=== PATIENT | female | born 1970 | race Caucasian/White ===

== ENCOUNTER → 2018-09-14 11:24 | Outpatient (CLI) | payer BC, SELFPAY ==
[2018-09-14 12:48] LABS: Free T4, Direct Thyroxine 0.71 ng/dL (0.78-2.19)
[2018-09-14 13:02] LABS: Thyroid Stimulating Hormone 6.46 uIU/mL (0.47-4.68)
== END ==
PROVIDERS: PCP Physician Assistant; Visit Provider Physician Assistant
DX: Z13.29 Encounter for screening for other suspected endocrine disorder (principal); R53.83 Other fatigue
CPT/HCPCS: 36415; 84439; 84443

== ENCOUNTER → 2018-10-13 13:02 | Outpatient (CLI) | payer BC, SELFPAY ==
[2018-10-13 15:22] LABS: Free T3, Triiodothyronine Free 3.11 pg/mL (2.77-5.27); Free T4, Direct Thyroxine 0.65 ng/dL (0.78-2.19)
[2018-10-13 15:36] LABS: Thyroid Stimulating Hormone 5.49 uIU/mL (0.47-4.68)
== END ==
PROVIDERS: PCP Physician Assistant; Visit Provider Physician Assistant
DX: R94.6 Abnormal results of thyroid function studies (principal)
CPT/HCPCS: 36415; 84439; 84443; 84481

== ENCOUNTER → 2018-12-14 10:25 | Outpatient (CLI) | payer BC, SELFPAY ==
[2018-12-14 12:10] LABS: Thyroid Stimulating Hormone 4.61 uIU/mL (0.47-4.68)
== END ==
PROVIDERS: PCP Physician Assistant; Visit Provider Physician Assistant
DX: E03.9 Hypothyroidism, unspecified (principal)
CPT/HCPCS: 36415; 84443

== ENCOUNTER → 2019-06-22 19:00 | Outpatient (ROUT) | payer BC, SELFPAY ==
[2019-06-22 19:58] LABS: TSH w/ Reflex to FT4 2.81 uIU/mL (0.47-4.68)
[2019-06-22 20:03] LABS: Hepatitis B Surface Antigen NEGATIVE s/c (NEGATIVE)
[2019-06-22 20:18] LABS: HIV 1 & 2 Ab/Ag 4th Gen Combo NEGATIVE (NEGATIVE); Hep C Virus Ab w/Reflex Quant NEGATIVE s/c (NEGATIVE)
[2019-06-25 15:58] LABS: Hepatitis A Antibody IgM Nonreactive (Nonreactive); Hepatitis B Core Antibody Nonreactive (Nonreactive)
[2019-06-25 17:14] LABS: Hepatitis A Antibody Total Reactive (Nonreactive)
[2019-06-30 14:10] LABS: Hepatitis B Surf Ab Qualitativ Borderline (Nonreactive)
== END ==
PROVIDERS: PCP Physician Assistant; Visit Provider Physician Assistant
DX: Z11.59 Encounter for screening for other viral diseases (principal); Z11.4 Encounter for screening for human immunodeficiency virus [HIV]; Z20.2 Contact with and (suspected) exposure to infections with a predominantly sexual mode of transmission; Z91.89 Other specified personal risk factors, not elsewhere classified; E03.9 Hypothyroidism, unspecified
CPT/HCPCS: 84443; 86704; 86706; 86708; 86709; 86803; 87340; 87389

== ENCOUNTER → 2019-09-12 10:08 | Outpatient (CLI) | payer BC, SELFPAY ==
--- NOTE | 2019-09-12 | DI.RAD.S_ITS ---
PROCEDURE: XR HIP W PEL IF DONE LT 2V INDICATIONS: PAIN IN LT HIP TECHNIQUE: 2 views of the hip were acquired. COMPARISON: None. FINDINGS: Bones: No fractures or dislocations. No suspicious bony lesions. The visualized pelvic ring appears intact. Soft tissues: No suspicious soft tissue calcifications or masses. IMPRESSION: Normal for age, source of current left hip pain symptoms is not seen. Dictated by: Andrews Cabral M.D. on 09/12/2019 at 12:49 Approved by: Andrews Cabral M.D. on 09/12/2019 at 12:49
== END ==
PROVIDERS: PCP Physician Assistant; Visit Provider Physician Assistant
DX: M25.552 Pain in left hip (principal)
CPT/HCPCS: 73502

== ENCOUNTER → 2019-09-14 09:44 | Outpatient (CLI) | payer BC, SELFPAY ==
--- NOTE | 2019-09-14 | DI.MRI.S_ITS ---
PROCEDURE: MR HIP LT WO CON INDICATIONS: Pain in left hip TECHNIQUE: Noncontrast coronal T1 spin echo and STIR through the bony pelvis. Coronal and axial T2 fast spin echo with fat saturation, sagittal T1 spin echo, and oblique axial T2 fast spin echo with fat saturation through the hip. COMPARISON: None. FINDINGS: Image quality: Excellent. Bones and joints: No fracture identified. Sacroiliac joints are unremarkable in signal intensity. There is lower lumbar spondylosis and facet arthropathy. No pathologic hip joint effusion. No evidence of osteonecrosis. Tendons and ligaments: The gluteus medius and minimus tendons appear markedly thickened with T2 hyperintense appearance in keeping with severe tendinopathy. Similar appearance to the right hip adductor insertion to a lesser extent on large field of view pulse sequences Proximal iliotibial band intact. Iliopsoas tendon intact. Origin of the hamstring tendon intact. The straight and reflected heads of the rectus femoris muscle origin appear intact Ligamentum teres appears intact where visualized. Labrum: Labrum appears intact in the absence of intra-articular contrast. The alpha angle of the femur is within normal limits at less than 55 degrees. Soft tissues: There is cystic, T2 hyperintense appearance present within the adductor muscle compartment, presumably intramuscular ganglion cyst although cystic nature could be confirmed with IV contrast enhanced examination (and exclude statistically much less likely myxoid lesion) Quadratus femoris muscle normal. Proximal sciatic neurovascular bundle appears normal adjacent to the hamstring tendons. No free pelvic fluid. Bladder normal. Genitourinary structures and bowel loops appear normal where visualized. IMPRESSION: Severe left hip adductor insertional tendinopathy and partial rupture. Similar appearance to the right hip adductor muscle insertion however to a lesser extent T2 hyperintense cystic lesion involving the left adductor musculature, probably intramuscular ganglion cyst although please see comment above. Left hamstring origin tendinopathy, technically age-indeterminate. Dictated by: Gregg Lozada M.D. on 09/14/2019 at 17:19 Approved by: Gregg Lozada M.D. on 09/14/2019 at 17:48
== END ==
PROVIDERS: PCP Physician Assistant; Visit Provider Physician Assistant
DX: M25.552 Pain in left hip (principal); S73.192A Other sprain of left hip, initial encounter; M47.816 Spondylosis without myelopathy or radiculopathy, lumbar region; S73.191A Other sprain of right hip, initial encounter
CPT/HCPCS: 73721

== ENCOUNTER → 2021-06-26 10:48 | Outpatient (CLI) | payer BC, SELFPAY ==
--- NOTE | 2021-06-26 10:51 | DI.RAD.S_ITS ---
PROCEDURE: XR HIP W PEL IF DONE JOSUE MIN 4V INDICATIONS: Bilateral hip pain TECHNIQUE: AP pelvis with lateral view(s) of both hip(s). COMPARISON: [facility], CR, XR LUMBAR SPINE MIN 4V, 06/26/2021, 10:47. [facility], RG, MRI HIP UNILATERAL WO CONTRAST, 05/15/2020, 12:20. [facility], MR, MR HIP LT WO CON, 09/14/2019, 10:15. [facility], CR, XR HIP W PEL IF DONE LT 2V, 09/12/2019, 10:30. FINDINGS: Bones: No fractures or dislocations. Pelvic ring appears intact. No suspicious bony lesions. Diastasis pubis can be seen. There is [id number] superior joint space narrowing seen of both hips, with associated remodeling changes with subchondral sclerosis and osteophyte formation. Soft tissues: The visualized bowel gas pattern is normal. No suspicious soft tissue calcifications. IMPRESSION: [id number] degenerative change can be seen involving both hips. Diastasis pubis noted. Dictated by: Tomy Dorado M.D. on 06/26/2021 at 10:38 Approved by: Tomy Dorado M.D. on 06/26/2021 at 10:41
--- NOTE | 2021-06-26 10:51 | DI.RAD.S_ITS ---
PROCEDURE: XR LUMBAR SPINE MIN 4V INDICATIONS: BACK PAIN TECHNIQUE: Four views of the lumbar spine are obtained. COMPARISON: None. FINDINGS: Bones: 5 nonrib-bearing vertebrae are present. There is normal bony alignment. No vertebral body compression fractures. No suspicious bony lesions. Mild multilevel disc space narrowing and endplate osteophyte formation. Facet hypertrophy throughout the mid and lower lumbar spine. Soft tissues: Overlying bowel gas pattern is normal. No suspicious soft tissue calcifications. IMPRESSION: Multilevel degenerative disc and facet disease. No acute fracture. No osseous lesion. If symptoms and/or clinical suspicion for pathology persist, further assessment with repeat, or advanced imaging (e.g., CT, MRI, or bone scan) may be helpful for further assessment. Dictated by: Lizbet Fitch M.D. on 06/26/2021 at 15:03 Approved by: Lizbet Fitch M.D. on 06/26/2021 at 15:04
== END ==
PROVIDERS: PCP Nurse Practitioner; Referring Provider Physical Medicine & Rehabilitation; Visit Provider Physical Medicine & Rehabilitation
DX: M54.9 Dorsalgia, unspecified (principal); M16.9 Osteoarthritis of hip, unspecified; M25.551 Pain in right hip; M25.552 Pain in left hip
CPT/HCPCS: 72110; 73522

== ENCOUNTER 2021-08-27 08:48 | Outpatient (CLI) | payer BC, OTHER, MEDICAID, SELFPAY ==
[2021-08-27] VITALS (10 sets, daily range): BP systolic 109–132; BP diastolic 55–86; PULSE 66–82; RESP 12–20; TEMP 36.4; O2SAT 95–100
--- NOTE | 2021-08-27 08:50 | DI.RAD.S_ITS ---
PROCEDURE: PAIN SI JOINT INJECTION JOSUE COMPARISON: [facility], CR, XR HIP W PEL IF DONE JOSUE 3TO4V, 06/26/2021, 10:47. [facility], CR, XR LUMBAR SPINE MIN 4V, 06/26/2021, 10:47. INDICATIONS: SACROILIAC DISORDER FINDINGS: 6 intraoperative fluoroscopy images demonstrate injection of SI joints bilaterally. IMPRESSION: Fluoroscopy for pain management. Dictated by: Sana Bedolla M.D. on 08/27/2021 at 10:28 Approved by: Sana Bedolla M.D. on 08/27/2021 at 10:29
[2021-08-27] MEDS: fentaNYL 100 MCG/2 ML INJ 50 MCG IV (09:12)
[2021-08-27] MEDS: LIDOCAINE 1% 20 ML (09:18)
[2021-08-27] MEDS: BUPIVACAINE 0.5% (PF) VIAL 2 ML INJ (09:18)
[2021-08-27] MEDS: IOPAMIDOL 15 ML VIAL 3 ML INJ (09:18)
[2021-08-27] MEDS: BETAMETHASONE 30 MG/5 ML MDV 12 MG INJ (09:19)
[2021-08-27] MEDS: MIDAZOLAM 5 MG/5 ML VIAL IV (09:22)
--- NOTE | 2021-08-27 09:31 | PM.PROC.IR.1 ---
Date/Time/Diagnoses Date of procedure: 08/27/21 Time of procedure: 09:31 Pre-procedure diagnosis: Sacroiliac joint pain/DJD Post-procedure diagnosis: same Procedure Notes Procedure: Fluoroscopic guided contrast controlled bilateral sacroiliac joint injection Indications: Rach is referred by ALDO Friedman for treatment of bilateral sacroiliac joint DJD Physician: Marcus Rosa Total Fluoroscopy time (seconds): 14 Total sedation minutes: 16 Complications: none Procedure in detail & Post-procedure care: Description of procedure Fluoroscopic guided, contrast controlled bilateral sacroiliac joint injection Following review of allergies and review of potential side effects and complications, including, but not necessarily limited to, infection, allergic reaction, local tissue breakdown, temporary as well as permanent nerve injury, paralysis, stroke and possible , the patient indicated that they understood and agreed to proceed. An informed consent was signed by the patient, witnessed by a nurse, and placed in the patient's chart. Additionally, other treatment options including modalities, medications, and physical therapy were reviewed with the patient. After review of previous anaesthesic history and IV conscious sedation the patient was deemed safe to proceed with today?s procedure with IV conscious sedation as ASA class II designation. Safety time-out was performed to confirm patient ID, procedure to be performed and site of procedure. IV sedation was accomplished with a combination of 5mg Versed and 50mcg of Fentanyl were administered by the RN after DO order, titrated to patient comfort during the course of the procedure while the patient remained responsive to all verbal commands In the prone position following sterile prep and drape of the pelvic region, the hyper lucency on in the inferior aspect of the right sacroiliac joint was identified fluoroscopically the skin was anesthetized be a 25 gauge 1.5 inch needle with approximately 2cc of 1% lidocaine solution. At this point, a 22 gauge 3 in spinal needle was atraumatically introduced and advanced under fluoroscopic guidance into the inferior aspect of the right sacroiliac joint. Following negative aspiration, approximately 0.3cc of [id number]-300 was injected confirming intra-articular placement without vascular uptake. Radiographic data, including multiple fluoroscopic views of the pelvis, reveals a spinal needle in the sacroiliac joint hyper lucent zone. Subsequent view show flow contrast tear superiorly and inferiorly within the joint capsule without vascular intrathecal uptake. At this point a total of 1cc of 0.5% Marcaine was combined with 1cc of 6mg of betamethasone was injected without incident. Attention was then refocused the left sacroiliac joint where the procedure was replicated. The procedure tolerated the procedure well without signs or symptoms of complications prior to transfer to the recovery area continued monitoring without incident. The patient was then transferred to the recovery area with a bur observed for an appropriate time after the injection. The patient reverted a vas score of 7 prior to the procedure and post-procedure vas of 1. Postop instructions The patient was provided with a pain like to continue to record the patient's response to the target specific procedure prior to the patient's follow-up visit with the referring physician. Additionally, specific post injection care instructions and a contact number to our office were provided if concerns arise regarding the possible complications associated with procedure are suspected.
== END 2021-08-27 09:56 | disposition home or self-care (01) ==
LOC: RAD 08:49
PROVIDERS: PCP Nurse Practitioner; Referring Provider Physical Medicine & Rehabilitation; Visit Provider Physical Medicine & Rehabilitation
DX: M53.3 Sacrococcygeal disorders, not elsewhere classified (principal); M46.1 Sacroiliitis, not elsewhere classified
CPT/HCPCS: 27096; 99152; J0702; J2250; J3010